=== PATIENT | female | born 1965 | race Caucasian/White ===

== ENCOUNTER 2018-03-31 17:13 | Emergency (ER) | payer BC ==
[~2018-03-31] VITALS: Ht 165.1 cm; Wt 74.8 kg
[~2018-03-31 17:13] MED LIST: ACET325 PO; ALBU90OI INH; ASPI81CH PO; AZIT250 PO; BELPTAB PO; BENZ100A PO; CHLO25 PO; CIPR500 PO; CYCL10 PO; FAMO20 PO; GUAI600T33 PO; HYDACE5 PO; HYDPAM25 PO; IBUP200 PO; LORA1 PO; METPRE4DP PO; METR500 PO; Norco 10-325 T1 EACH PO; OMEP20ER PO; OXYACE5T PO; PRED20 PO; PROM25 PO; PROM25S PR; RXHYDACE PO; RXONDA4ODT MM; RXOXYACE PO
[2018-03-31 18:21] LABS: BASOPHILS ABSOLUTE AUTO 0.03 K/mm3 (0.00-0.23); BASOPHILS PERCENT AUTO 0 % (0-2); EOSINOPHILS ABSOLUTE AUTO 0.06 K/mm3 (0.00-0.68); EOSINOPHILS PERCENT AUTO 1 % (0-6); Hematocrit 44.7 % (33.0-51.0); Hemoglobin 14.7 g/dL (11.5-16.0); IMMATURE GRAN ABSOLUTE AUTO 0.04 K/mm3 (0.00-0.10); IMMATURE GRAN PERCENT AUTO 1 % (0-1); LYMPHOCYTES ABSOLUTE AUTO 1.97 K/mm3 (0.84-5.20); LYMPHOCYTES PERCENT AUTO 26 % (21-46); MONOCYTES ABSOLUTE AUTO 0.38 K/mm3 (0.16-1.47); MONOCYTES PERCENT AUTO 5 % (4-13); Mean Corpuscular HGB 31.1 pg (26.0-34.0); Mean Corpuscular HGB Conc 32.9 g/dL (31.5-36.5); Mean Corpuscular Volume 95 fL (80-100); Mean Platelet Volume 9.1 fL (9.1-12.4); NEUTROPHILS ABSOLUTE AUTO 5.22 K/mm3 (1.96-9.15); NEUTROPHILS PERCENT AUTO 68 % (41-73); Platelet Count 294 K/mm3 (150-400); RDW Coefficient Variation 12.6 % (11.7-14.2); RDW Standard Deviation 44.3 fL (35.1-46.3); Red Blood Cell Count 4.72 M/mm3 (3.80-5.20)
[2018-03-31 18:35] LABS: Alanine Aminotransfer (ALT/SGP 44 U/L (12-78); Alk Phos 83 U/L (50-136); Anion Gap 6 mmol/L (6-16); Aspartate Aminotrans (AST/SGOT 31 U/L (12-37); Bilirubin, Total 0.4 mg/dL (0.1-1.0); Blood Urea Nitrogen 13 mg/dL (8-24); Bun/Creatinine Ratio 19.9 (12.0-20.0); CO2, Blood 28 mmol/L (21-32); Calcium, Blood 9.6 mg/dL (8.5-10.1); Chloride, Blood 106 mmol/L (98-108); Creatinine, Blood 0.65 mg/dL (0.40-1.00); Globulin, Blood 3.9 g/dL (2.2-4.0); Glomerular Filtration Rate >60 (60-); Glucose, Blood 106 mg/dL (70-99); Sodium, Blood 140 mmol/L (136-145); Total Protein, Blood 7.9 g/dL (6.4-8.2); Troponin I <0.015 ng/mL (0.000-0.040)
[2018-03-31] MEDS ORDERED: Percocet 7.5-31 EACH PO (19:47)
[2018-03-31] MEDS ORDERED: Vistaril25 MG PO (21:48)
== END 2018-03-31 22:22 | disposition home or self-care (01) ==
LOC: ER 17:13
PROVIDERS: Physician Assistant
DX: F41.9 Anxiety disorder, unspecified (principal); F17.200 Nicotine dependence, unspecified, uncomplicated
CPT/HCPCS: 36415; 71046; 80053; 84484; 85025; 85379; 93005; 93010; 96374; 99285-25; J2060

== ENCOUNTER 2022-11-30 09:38 | Day surgery (SDC) | payer MEDICARE, OTHER ==
[~2022-11-30] VITALS: Ht 162.6 cm; Wt 71.3 kg
[~2022-11-30 09:38] MED LIST changes: +NEURONTIN300 MG PO; +Percocet 7.5-31 EACH PO; +Vistaril25 MG PO
[2022-11-30] MEDS ORDERED: OXYC10ER PO (10:26)
[2022-11-30 12:08] VITALS: BP 114/77
== END 2022-11-30 12:17 | disposition home or self-care (01) ==
LOC: ORSCSDS 09:38
PROVIDERS: Internal Medicine Gastroenterology
PROC: 0DB68ZX Excision of Stomach, Via Natural or Artificial Opening Endoscopic, Diagnostic (ICD-10-PCS; principal; 2022-11-30 11:00)
PROC: 0DB58ZX Excision of Esophagus, Via Natural or Artificial Opening Endoscopic, Diagnostic (ICD-10-PCS; principal; 2022-11-30 11:00)
PROC: 0DBK8ZX Excision of Ascending Colon, Via Natural or Artificial Opening Endoscopic, Diagnostic (ICD-10-PCS; principal; 2022-11-30 11:00)
DX: K62.5 Hemorrhage of anus and rectum (principal); K21.9 Gastro-esophageal reflux disease without esophagitis; K57.30 Diverticulosis of large intestine without perforation or abscess without bleeding; D12.2 Benign neoplasm of ascending colon; Z87.891 Personal history of nicotine dependence; Z79.899 Other long term (current) drug therapy
CPT/HCPCS: 88305; 88342; J2704; J7120

== ENCOUNTER 2024-05-10 20:53 | Emergency (ER) | payer MEDICARE ==
[~2024-05-10] VITALS: Ht 162.6 cm; Wt 74.8 kg
[~2024-05-10 20:53] MED LIST changes: +OXYC10ER PO
[2024-05-10 20:59] VITALS: BP 155/97
[2024-05-10] MEDS ORDERED: Ibuprofen 600 MG Tab PO ONE (21:20)
== END 2024-05-10 22:09 | disposition home or self-care (01) ==
LOC: ER 20:53
DX: S63.655A Sprain of metacarpophalangeal joint of left ring finger, initial encounter (principal); S63.657A Sprain of metacarpophalangeal joint of left little finger, initial encounter; F17.200 Nicotine dependence, unspecified, uncomplicated; Z88.5 Allergy status to narcotic agent; Z79.899 Other long term (current) drug therapy; X58.XXXA Exposure to other specified factors, initial encounter
CPT/HCPCS: 73120; 99283-25; A9270

== ENCOUNTER 2025-01-09 13:28 | Day surgery (SDC) | payer MEDICARE ==
[2025-01-09] VITALS (11 sets, daily range): BP systolic 96–144; BP diastolic 69–109
[~2025-01-09] VITALS: Ht 162.6 cm; Wt 72.9 kg
[~2025-01-09 13:28] MED LIST changes: +BUPRENORPHIN-N1 EAC1 SL; +METO5A PO
--- NOTE | 2025-01-09 14:26 | NUR ---
01/09/25 1426 Carlitos Echols CONFIRMED AND REVIEWED H&P, MEDCICATIONS, ALLERGIES, MEDICAL HISTORY, RESPIRATORY HISTORY, VITAL SIGNS, 3-LEAD EKG, CONSENTS, AND PHYSICIAN ORDERS. PATIENT CONFIRMS NPO STATUS AND AGREES WITH SCHEDULED PROCEDURE. MONITOR INTACT WITH CONTINUOUS PULSE OXIMETRY, CAPNOGRAPHY, 3-LEAD EKG, INTERMITTENT BP. SUPPLEMENTAL O2 TO BE TITRATED THROUGHOUT PROCEDURE TO MAINTAIN O2 SATURATION ABOVE 90%. PATIENT DETERMINED TO BE ASA APPROPRIATE FOR PROPOFOL SEDATION PRIOR TO START OF PROCEDURE BY DR. FOX
--- NOTE | 2025-01-09 14:27 | NUR ---
Ambulatory in Day Surgery. History, Chart, Medications and Allergies reviewed before start of procedure. Patient confirms NPO status and agrees with scheduled surgery. Pre-Op teaching done. Pt verbalizes understanding. Patient States Post-Procedure ride home has been arranged.
== END 2025-01-09 15:02 | disposition home or self-care (01) ==
LOC: ORSCMMR 13:28 → ORD 15:00 → ORSCMMR 15:02
PROVIDERS: Surgery
PROC: 0DB68ZX Excision of Stomach, Via Natural or Artificial Opening Endoscopic, Diagnostic (ICD-10-PCS; principal; 2025-01-09 15:00)
DX: K21.9 Gastro-esophageal reflux disease without esophagitis (principal); K44.9 Diaphragmatic hernia without obstruction or gangrene; K29.70 Gastritis, unspecified, without bleeding; Z87.11 Personal history of peptic ulcer disease; R68.81 Early satiety; R11.2 Nausea with vomiting, unspecified; Z79.899 Other long term (current) drug therapy; F17.210 Nicotine dependence, cigarettes, uncomplicated
CPT/HCPCS: 88305; 88342; J2704; J7120